=== PATIENT | female | born 1970 | race African-American/Black ===

== ENCOUNTER 2021-12-11 17:56 | Emergency (ER) | payer BC ==
[2021-12-11] MEDS ORDERED: Acetaminophen 500 MG TAB ONE (19:03)
[2021-12-11] MEDS ORDERED: Ketorolac Tromethamine 30 MG/ML VIAL ONE (19:04)
== END 2021-12-11 20:31 | disposition home or self-care (01) ==
LOC: CSHERS 17:56
DX: S46.911A Strain of unspecified muscle, fascia and tendon at shoulder and upper arm level, right arm, initial encounter (principal); I10 Essential (primary) hypertension; X50.0XXA Overexertion from strenuous movement or load, initial encounter; Y93.F2 Activity, caregiving, lifting; Y92.69 Other specified industrial and construction area as the place of occurrence of the external cause
CPT/HCPCS: 93005; 96372; J1885